=== PATIENT | male | born 1935 | race Caucasian/White ===

== ENCOUNTER 2016-10-05 14:12 | Outpatient (CLI) | payer MEDICARE | END 2016-10-05 14:13 | disposition home or self-care (01) | DX: I48.91 Unspecified atrial fibrillation (principal) ==

== ENCOUNTER 2016-10-08 15:07 | Outpatient (CLI) | payer MEDICARE | END 2016-10-08 15:08 | disposition home or self-care (01) | DX: I48.91 Unspecified atrial fibrillation (principal) ==

== ENCOUNTER 2016-10-22 08:39 | Outpatient (CLI) | payer MEDICARE | END 2016-10-22 08:40 | disposition home or self-care (01) | DX: I48.91 Unspecified atrial fibrillation (principal) ==

== ENCOUNTER 2016-11-10 10:42 | Outpatient (CLI) | payer MEDICARE | END 2016-11-10 10:43 | disposition home or self-care (01) | DX: I48.91 Unspecified atrial fibrillation (principal) ==

== ENCOUNTER 2016-12-10 14:12 | Outpatient (CLI) | payer MEDICARE | END 2016-12-10 14:13 | disposition home or self-care (01) | DX: G43.909 Migraine, unspecified, not intractable, without status migrainosus (principal); I48.91 Unspecified atrial fibrillation; E11.9 Type 2 diabetes mellitus without complications; I10 Essential (primary) hypertension; E78.5 Hyperlipidemia, unspecified ==

== ENCOUNTER 2017-01-14 14:14 | Outpatient (CLI) | payer MEDICARE | END 2017-01-14 14:15 | disposition home or self-care (01) | DX: I48.91 Unspecified atrial fibrillation (principal) ==

== ENCOUNTER 2017-02-21 12:49 | Outpatient (CLI) | payer MEDICARE ==
--- NOTE | 2017-02-21 14:58 | Ultrasound Report ---
LEFT BREAST ULTRASOUND: 02/21/2017 CLINICAL INDICATION: Palpable abnormality left retroareolar breast. TECHNIQUE: Real-time scanning was performed with customer engagement representative static images obtained. FINDINGS: Ultrasound of the palpable region identified by the patient was performed. There is unrem arkable gynecomastia in the left retroareolar breast. No sonographically suspicious findings are yoselin ntified. IMPRESSION: BENIGN FINDINGS. RECOMMENDATION: Continued clinical management. BIRADS CATEGORY 2 - BENIGN FINDINGS. JOB #: [id number] EXT JOB #:
--- NOTE | 2017-02-21 15:26 | Mammography Report ---
DIGITAL DIAGNOSTIC BILATERAL MAMMOGRAM: 02/21/2017 CLINICAL INDICATION: Palpable abnormality left retroareolar breast. TECHNIQUE: Bilateral CC and MLO views. FINDINGS: There is asymmetric gynecomastia in the left retroareolar breast. No suspicious mass, clu stered microcalcifications, or regions of architectural distortion are identified. Please also refer to left breast ultrasound of the same day. IMPRESSION: BENIGN FINDINGS, WITH ASYMMETRIC GYNECOMASTIA. RECOMMENDATION: Continued clinical management. BIRADS CATEGORY 2 - BENIGN FINDINGS. STANDARD QUALIFYING STATEMENTS 1. This examination was reviewed with the aid of Computer-Aided Detection (CAD). 2. A negative or benign imaging report should not delay biopsy if clinically suspicious findings are present. Consider surgical consultation if warranted. More than 5% of cancers are not identified by i maging. 3. Dense breasts may obscure an underlying neoplasm. JOB #: [id number] EXT JOB #:[id number]
== END 2017-02-21 12:50 | disposition home or self-care (01) ==
LOC: DI 12:49
PROVIDERS: ATTEND Internal Medicine
DX: N62 Hypertrophy of breast (principal)
CPT/HCPCS: 76642; G0204; 77066

== ENCOUNTER 2017-03-01 15:20 | Outpatient (CLI) | payer MEDICARE | END 2017-03-01 15:21 | disposition home or self-care (01) | LOC: LAB.F 15:20 | PROVIDERS: ATTEND Family Medicine | DX: I48.91 Unspecified atrial fibrillation (principal) | CPT/HCPCS: 85610 ==

== ENCOUNTER 2017-04-06 13:23 | Outpatient (CLI) | payer MEDICARE | END 2017-04-06 13:24 | disposition home or self-care (01) | LOC: LAB.F 13:23 | PROVIDERS: ATTEND Internal Medicine | DX: I48.91 Unspecified atrial fibrillation (principal) | CPT/HCPCS: 85610 ==

== ENCOUNTER 2017-04-21 13:31 | Outpatient (CLI) | payer MEDICARE | END 2017-04-21 13:32 | disposition home or self-care (01) | LOC: LAB.F 13:31 | PROVIDERS: ATTEND Internal Medicine | DX: I48.91 Unspecified atrial fibrillation (principal) | CPT/HCPCS: 85610 ==

== ENCOUNTER 2017-05-11 10:52 | Outpatient (CLI) | payer MEDICARE | END 2017-05-11 10:53 | disposition home or self-care (01) | LOC: LAB.F 10:52 | PROVIDERS: ATTEND Internal Medicine | DX: I48.91 Unspecified atrial fibrillation (principal) | CPT/HCPCS: 85610 ==

== ENCOUNTER 2017-06-24 14:27 | Outpatient (CLI) | payer MEDICARE | END 2017-06-24 14:28 | disposition home or self-care (01) | LOC: LAB.F 14:27 | PROVIDERS: ATTEND Internal Medicine | DX: I48.91 Unspecified atrial fibrillation (principal) | CPT/HCPCS: 85610 ==

== ENCOUNTER 2017-06-29 07:44 | Outpatient (CLI) | payer MEDICARE ==
[2017-06-29 13:30] LABS: BASOPHILS % (AUTO) 0.6 %; EOSINOPHILS # (AUTO) 0.2 10^3/uL (0.0-0.7); EOSINOPHILS % (AUTO) 4.1 %; HCT - HEMATOCRIT 40.6 % (42.0-52.0); HGB - HEMOGLOBIN 13.8 g/dL (14.0-18.0); LYMPHOCYTES # (AUTO) 1.1 10^3/uL (1.5-3.5); LYMPHOCYTES % (AUTO) 19.9 %; MEAN CORPUSCULAR HEMOGLOBIN 31.2 pg (27.0-31.0); MEAN CORPUSCULAR VOLUME 91.7 fL (80.0-94.0); MEAN PLATELET VOLUME 9.4 fL (7.4-11.4); MONOCYTES # (AUTO) 0.6 10^3/uL (0.0-1.0); MONOCYTES % (AUTO) 10.1 %; NEUTROPHILS # (AUTO) 3.7 10^3/uL (1.5-6.6); NEUTROPHILS % (AUTO) 65.3 %; RED BLOOD COUNT 4.42 10^6/uL (4.70-6.10); RED CELL DISTRIBUTION WIDTH 12.9 % (12.0-15.0); UNCORRECTED WHITE BLOOD COUNT 5.6 x10^3/uL; WHITE BLOOD COUNT 5.6 x10^3/uL (4.8-10.8)
[2017-06-29 14:03] LABS: ALBUMIN/GLOBULIN RATIO 1.5 (1.0-2.2); BILIRUBIN,TOTAL 0.8 mg/dL (0.2-1.0); BUN - BLOOD UREA NITROGEN 19 mg/dL (6-20); CALCIUM 8.9 mg/dL (8.5-10.3); CARBON DIOXIDE - CO2 27 mmol/L (21-32); CHLORIDE 104 mmol/L (101-111); CHOL/HDL RATIO 4.3 (<5.0); CHOLESTEROL 132 mg/dL; GFR - MDRD 72 (>89); GLUCOSE 122 mg/dL (70-100); HDL CHOLESTEROL 31 mg/dL; LDL/HDL RATIO 2.5 (<3.6); SODIUM 137 mmol/L (135-145); TOTAL PROTEIN 6.9 g/dL (6.7-8.2); TRIGLYCERIDES 124 mg/dL; VLDL CHOLESTEROL 25 mg/dL
[2017-06-29 14:32] LABS: HEMOGLOBIN A1C 0.66 g/dL
== END 2017-06-29 07:45 | disposition home or self-care (01) ==
LOC: LAB.F 07:44
PROVIDERS: ATTEND Internal Medicine
DX: I48.91 Unspecified atrial fibrillation (principal); E11.9 Type 2 diabetes mellitus without complications; I10 Essential (primary) hypertension; E78.5 Hyperlipidemia, unspecified; E78.00 Pure hypercholesterolemia, unspecified; Z12.5 Encounter for screening for malignant neoplasm of prostate
CPT/HCPCS: 36415; 80053; 80061; 83036; 85025; 85610; G0103; 84153

== ENCOUNTER 2017-08-03 13:25 | Outpatient (CLI) | payer MEDICARE | END 2017-08-03 13:26 | disposition home or self-care (01) | LOC: LAB.F 13:25 | PROVIDERS: ATTEND Physician Assistant Medical | DX: Z79.01 Long term (current) use of anticoagulants (principal) | CPT/HCPCS: 85610 ==

== ENCOUNTER 2017-08-29 08:00 | Outpatient (CLI) | payer MEDICARE | END 2017-08-29 08:01 | disposition home or self-care (01) | LOC: LAB.F 08:00 | PROVIDERS: ATTEND Physician Assistant Medical | DX: Z79.01 Long term (current) use of anticoagulants (principal) | CPT/HCPCS: 85610 ==

== ENCOUNTER 2017-09-28 07:29 | Outpatient (CLI) | payer MEDICARE | END 2017-09-28 07:30 | disposition home or self-care (01) | LOC: LAB.F 07:29 | PROVIDERS: ATTEND Physician Assistant Medical | DX: Z79.01 Long term (current) use of anticoagulants (principal) | CPT/HCPCS: 85610 ==

== ENCOUNTER 2017-11-03 09:07 | Outpatient (CLI) | payer MEDICARE | END 2017-11-03 09:08 | disposition home or self-care (01) | LOC: LAB.F 09:07 | PROVIDERS: ATTEND Physician Assistant Medical | DX: Z79.01 Long term (current) use of anticoagulants (principal) | CPT/HCPCS: 85610 ==

== ENCOUNTER 2017-11-24 05:40 | Emergency (ER) | payer MEDICARE ==
[2017-11-24 06:08] LABS: BASOPHILS % (AUTO) 0.5 %; EOSINOPHILS # (AUTO) 0.2 10^3/uL (0.0-0.7); EOSINOPHILS % (AUTO) 2.4 %; HGB - HEMOGLOBIN 12.4 g/dL (14.0-18.0); LYMPHOCYTES % (AUTO) 14.2 %; MEAN CORPUSCULAR HEMOGLOBIN 30.4 pg (27.0-31.0); MEAN CORPUSCULAR HGB CONC 32.9 g/dL (32.0-36.0); MEAN CORPUSCULAR VOLUME 92.4 fL (80.0-94.0); MEAN PLATELET VOLUME 8.4 fL (7.4-11.4); MONOCYTES # (AUTO) 0.7 10^3/uL (0.0-1.0); MONOCYTES % (AUTO) 9.8 %; NEUTROPHILS % (AUTO) 73.1 %; PLT - PLATELET COUNT 163 10^3/uL (130-450); RED BLOOD COUNT 4.07 10^6/uL (4.70-6.10); WHITE BLOOD COUNT 6.9 x10^3/uL (4.8-10.8)
[2017-11-24 06:19] LABS: INR 3.2 (0.8-1.2); PT - PROTHROMBIN TIME 34.8 secs (9.9-12.6)
[2017-11-24 06:24] LABS: ALBUMIN 3.9 g/dL (3.2-5.5); ALBUMIN/GLOBULIN RATIO 1.3 (1.0-2.2); BILIRUBIN,TOTAL 0.5 mg/dL (0.2-1.0); CALCIUM 9.2 mg/dL (8.5-10.3); CREATININE 0.9 mg/dL (0.6-1.2); MAGNESIUM 1.9 mg/dL (1.7-2.8)
[2017-11-24] MEDS ORDERED: IOPAMIDOL-300 100 ML VIAL ONE (06:35)
[2017-11-24] MEDS ORDERED: IOPAMIDOL-300 100 ML VIAL IVP ONE (06:39)
[2017-11-24] MEDS ORDERED: NITROGLYCERIN SL 0.4 MG TABLET SL STA (06:42)
--- NOTE | 2017-11-24 06:45 | ED Physician Documentation ---
PD HPI CHEST PAIN - Stated complaint Stated Complaint: CHEST PX/SPITTING BLOOD - Chief complaint Chief Complaint: Cardiac - History obtained from History obtained from: Patient, Family - History of Present Illness Timing - onset: Today Timing - onset during: Rest Timing - details: Abrupt onset, Still present Quality: Pressure, Aching Location: Left chest Associated symptoms: Palpitations, Cough, Other (hemoptysis). No: Shortness of air, Diaphoresis Similar symptoms before: Work up / diagnostics Recently seen: Clinic - Additional information Additional information: Patient is an 82 year old male with a history of a fib who is presenting to the emergency department for chest pain and hemoptysis. According to patient and family the pain woke him up from sleep. It is aching in nature. patient states that he went to his doctor two weeks ago and said his heart was fine, but only auscultated the heart. patient reports that he has not had a stress test or echo in about 4 years. patient states that he has been coughing up blood, approximately 5-6 tablespoons. Review of Systems Constitutional: denies: Fever, Chills Eyes: reports: Reviewed and negative Ears: reports: Reviewed and negative Nose: denies: Epistaxis Throat: reports: Reviewed and negative Cardiac: reports: Chest pain / pressure. denies: Palpitations Respiratory: reports: Cough, Hemoptysis GI: reports: Reviewed and negative : reports: Reviewed and negative Skin: denies: Rash, Lesions Musculoskeletal: denies: Neck pain, Back pain Neurologic: denies: Generalized weakness, Focal weakness, Numbness Psychiatric: reports: Reviewed and negative Endocrine: reports: Reviewed and negative PD PAST MEDICAL HISTORY - Past Medical History Cardiovascular: Hypertension, High cholesterol, Atrial fibrillation Respiratory: None Endocrine/Autoimmune: None GI: GERD : None HEENT: None Psych: None Musculoskeletal: None Derm: None - Past Surgical History General: Colonoscopy, Other Ortho: Hip replacement Cardiovascular: Other Derm: Other - Present Medications Home Medications: Ambulatory Orders Medication Instructions Recorded Confirmed Alfuzosin HCl [Alfuzosin HCl ER] 10 mg PO DAILY 02/17/15 09/29/15 Calcium Citrate/Vitamin D3 600 mg PO BID 02/17/15 09/29/15 [Calcitrate + Vit D Caplet] Cyanocobalamin (Vitamin B-12) 1,000 mg PO DAILY 02/17/15 09/29/15 [B-12] Digoxin 125 mcg PO DAILY 02/17/15 09/29/15 Diltiazem HCl [Diltiazem 24Hr ER] 360 mg PO DAILY 02/17/15 09/29/15 Finasteride 5 mg PO DAILY 02/17/15 09/29/15 Omeprazole 20 mg PO BID 02/17/15 09/29/15 Pravastatin Sodium 40 mg PO DAILY 02/17/15 09/29/15 Warfarin [Coumadin] 2.5 mg PO DAILY 02/17/15 09/29/15 Sucralfate 1 tab ORAL DAILY 04/18/15 09/29/15 - Allergies Allergies/Adverse Reactions: Allergies Allergy/AdvReac Type Severity Reaction Status Date / Time adhesive tape Allergy Rash Verified 09/29/15 07:02 latex AdvReac Itching Verified 09/29/15 07:03 tetracycline AdvReac Headache Verified 04/21/15 11:53 - Social History Does the pt smoke?: No Smoking Status: Never smoker Does the pt drink ETOH?: Yes Does the pt have substance abuse?: No - Immunizations Immunizations are current?: Yes PD ED PE NORMAL - Vitals Vital signs reviewed: Yes - General General: Alert and oriented X 3, No acute distress - HEENT HEENT: Atraumatic, PERRL - Neck Neck: Supple, no meningeal sign, No JVD - Respiratory Respiratory: No respiratory distress - Abdomen Abdomen: Soft, Non tender, Non distended - Derm Derm: Normal color, Warm and dry, No rash - Extremities Extremities: No deformity, No edema, No calf tenderness / cord - Neuro Neuro: Alert and oriented X 3, No motor deficit, No sensory deficit, Normal speech Eye Opening: Spontaneous Motor: Obeys Commands Verbal: Oriented GCS Score: 15 - Psych Psych: Normal mood PD ED PE EXPANDED - Neck Neck: Other (scar on left neck) - Cardiac Cardiac: Irregularly irregular Results - Vitals Vitals: Oxygen O2 Source Room air - EKG (time done) 0550 Rate: Rate (enter#) (117) Rhythm: Atrial fibrillation [place]: Normal Intervals: RBBB Compare to prior EKG: Old EKG unavailable - Labs Labs: Laboratory Tests 11/24/17 11/24/17 11/24/17 05:55 05:55 05:55 WBC 6.9 RBC 4.07 L Hgb 12.4 L Hct 37.6 L MCV 92.4 MCH 30.4 MCHC 32.9 RDW 13.0 Plt Count 163 MPV 8.4 Neut # 5.0 Lymph # 1.0 L [place] # 0.7 Eos # 0.2 Baso # 0.0 Absolute Nucleated RBC 0.00 Nucleated RBC % 0.0 PT 34.8 H INR 3.2 H APTT 44.2 H Sodium 137 Potassium 3.9 Chloride 104 Carbon Dioxide 26 Anion Gap 7.0 BUN 28 H Creatinine 0.9 Estimated GFR (MDRD) 81 L Glucose 129 H Calcium 9.2 Phosphorus 3.0 Magnesium 1.9 Total Bilirubin 0.5 AST 23 ALT 23 Alkaline Phosphatase 52 Troponin I B-Natriuretic Peptide Total Protein 7.0 Albumin 3.9 Globulin 3.1 Albumin/Globulin Ratio 1.3 Lipase 27 11/24/17 11/24/17 05:55 05:55 WBC RBC Hgb Hct MCV MCH MCHC RDW Plt Count MPV Neut # Lymph # [place] # Eos # Baso # Absolute Nucleated RBC Nucleated RBC % PT INR APTT Sodium Potassium Chloride Carbon Dioxide Anion Gap BUN Creatinine Estimated GFR (MDRD) Glucose Calcium Phosphorus Magnesium Total Bilirubin AST ALT Alkaline Phosphatase Troponin I < 0.04 B-Natriuretic Peptide 301 H Total Protein Albumin Globulin Albumin/Globulin Ratio Lipase - Rads (name of study) ct angio Radiology: Final report received (normal) PD MEDICAL DECISION MAKING - ED course Complexity details: reviewed old records, reviewed results, re-evaluated patient , considered differential, d/w patient ED course: Patient was seen and examined at bedside. ekg was performed and showed a fib. patient was placed on a monitor. IV access was gained and labs were drawn. CT PE was ordered. Patient was treated with nitro. When patient returned the results were reviewed and were within normal limits. there was no PE, and no signs of acute cardiac abnormality. Patient's symptoms have been going on for a few weeks and unlikely an acute AR, but were more likely secondary to bronchitis and an elevated INR. patient was told to hold his coumadin. Patient and family stated that they would call their doctor today and schedule close cardiac follow up. Patient was stable for discharge with outpatient follow up. Departure - Departure Disposition: 01 Home, Self Care Clinical Impression: Chest pain Condition: Good Instructions: ED Hemoptysis Follow-Up: primary,care provider [Other] - Tomorrow Comments: Your diagnostics today were within normal limits. there is no blood clots at this time. You should refrain from taking your coumadin today. you should follow up with your doctor today to schedule a follow up stress test and echocardiogram. Discharge Date/Time: 11/24/17 07:25
[2017-11-24 06:55] VITALS: BP 126/80
--- NOTE | 2017-11-24 07:01 | CT Report ---
EXAM: CT ANGIOGRAM CHEST EXAM DATE: 11/24/2017 06:42 AM. CLINICAL HISTORY: Chest pain, hemoptysis. COMPARISON: None. TECHNIQUE: Routine helical imaging was performed through the chest in the pulmonary arterial phase. I V Contrast: Nonionic. Reconstructions: Coronal 3-D MIP reconstructions.Sagittal and coronal. In accordance with CT protocol optimization, one or more of the following dose reduction techniques w ere utilized for this exam: automated exposure control, adjustment of mA and/or KV based on patient s ize, or use of iterative reconstructive technique. FINDINGS: Pulmonary Arteries: Diagnostic quality: Adequate through the segmental arteries. No evidence for acute or chronic pulmona ry emboli. No evidence of right heart strain. Lungs/Pleura: Interstitial disease of uncertain chronicity. There may be some interstitial fibrosis. Slight pulmonary edema is also possible. No davy alveolar consolidation. Trace pleural effusions. No pneumothorax. Mediastinum: Moderate cardiomegaly. Coronary artery calcifications. Normal sized mediastinal lymph no melissa. Possible esophageal mass is seen at the level of the brne. Thoracic Aorta: Moderate atherosclerosis. No aneurysm or dissection. Upper Abdomen: Unremarkable. Other: None. IMPRESSION: 1. No pulmonary emboli seen. 2. Moderate cardiomegaly with coronary artery calcifications. 3. Interstitial disease of uncertain chronicity. Possible interstitial fibrosis. Mild pulmonary edema not entirely excluded. 4. Trace pleural effusions. 5. Possible esophageal mass at the level of the bren. Consider endoscopy for further evaluation. [facility] Referring Provider Line: [phone] SITE ID: [id number]
--- NOTE | 2017-11-24 07:01 | CT Preliminary Report ---
Exam: CT CHEST ANGIO (PE) IMPRESSION: 1. No pulmonary emboli seen. 2. Moderate cardiomegaly with coronary artery calcifications. 3. Interstitial disease of uncertain chronicity. Possible interstitial fibrosis. Mild pulmonary edema not entirely excluded. 4. Trace pleural effusions. 5. Possible esophageal mass at the level of the bren. Consider endoscopy for further evaluation. [facility] SITE ID: [id number]
== END 2017-11-24 07:25 | disposition home or self-care (01) ==
LOC: ED 05:40
DX: R07.9 Chest pain, unspecified (principal); J40 Bronchitis, not specified as acute or chronic; D68.9 Coagulation defect, unspecified; R04.2 Hemoptysis; I48.91 Unspecified atrial fibrillation; Z79.01 Long term (current) use of anticoagulants; I10 Essential (primary) hypertension; K21.9 Gastro-esophageal reflux disease without esophagitis
CPT/HCPCS: 36415; 71275; 80053; 83690; 83735; 83880; 84100; 84484; 85025; 85610; 85730; 93005; 99283; 99284; Q9967

== ENCOUNTER 2017-12-07 14:04 | Outpatient (CLI) | payer MEDICARE | END 2017-12-07 14:05 | disposition home or self-care (01) | LOC: LAB.F 14:04 | PROVIDERS: ATTEND Physician Assistant Medical | DX: Z79.01 Long term (current) use of anticoagulants (principal) | CPT/HCPCS: 85610 ==

== ENCOUNTER 2017-12-14 09:33 | Outpatient (CLI) | payer MEDICARE ==
[2017-12-14] MEDS ORDERED: BARIUM SULFATE 135 ML BOTTLE PO ONE (10:19)
[2017-12-14] MEDS ORDERED: BARIUM SULFATE 176 GM BOTTLE PO ONE (10:19)
--- NOTE | 2017-12-14 10:42 | XRAY Report ---
ESOPHAGRAM: 12/14/2017 CLINICAL INDICATION: History of ulcers, difficulty swallowing, possible mass. FINDINGS: Esophagram was performed in the upright and prone positions. The hypopharynx appears unremarkable. The proximal half of the esophagus appears unremarkable. Just below the level of the bren, there is an intraluminal filling defect, which extends approximately 3 cm craniocaudal, and causes significant mass effect upon the lumen of the esophagus. It appears to arise from the left anterolateral wall. The appearance is highly suspicious for esophageal malignancy. No definite ulceration is identified. A small sliding hiatal hernia is present, producing gastroesophageal reflux. Given the size of the intraluminal component of the lesion, a barium pill was not administered. IMPRESSION: INTRALUMINAL MASS IN THE MID ESOPHAGUS, LIKELY ARISING FROM THE LEFT ANTEROLATERAL WALL, WITH SIGNIFICANT MASS EFFECT UPON THE LUMEN. THE APPEARANCE IS SUSPICIOUS FOR MALIGNANCY. GIVEN THE DEGREE OF MASS EFFECT UPON THE ESOPHAGEAL LUMEN, THE BARIUM PILL WAS NOT ADMINISTERED. Report called to Dr. Wong 12/14/2017 at 10:15 a.m. Fluoroscopy time: 2 minutes 1 second: 22 spot images. TD: 12/14/2017 10:42
== END 2017-12-14 09:34 | disposition home or self-care (01) ==
LOC: DI 09:33
PROVIDERS: ATTEND Surgery
DX: K22.8 Other specified diseases of esophagus (principal)
CPT/HCPCS: 74220; A9270

== ENCOUNTER 2017-12-19 09:19 | Day surgery (SDC) | payer MEDICARE ==
[2017-12-19] MEDS ORDERED: LACTATED RINGERS 1,000 ML IV ONE (09:28)
[2017-12-19] MEDS ORDERED: LIDO GARGLE 30 ML BOTTLE ONE (10:59)
[2017-12-19] MEDS ORDERED: MIDAZOLAM 2 MG/2 ML VIAL IVP ONE (11:02)
[2017-12-19] MEDS ORDERED: fentaNYL 100 MCG/2 ML VIAL IVP ONE (11:02)
[2017-12-19] MEDS ORDERED: BENZOCAINE/TETRACAINE/BUTAMBEN SPRAY 56 GM TOP ONE (11:11)
[2017-12-19] MEDS ORDERED: LIDO GARGLE 30 ML BOTTLE PO ONE (11:12)
[2017-12-19 12:35] VITALS: BP 122/61
== END 2017-12-19 09:20 | disposition home or self-care (01) ==
LOC: SDS 09:19
PROVIDERS: ATTEND Surgery
PROC: 0DB28ZX Excision of Middle Esophagus, Via Natural or Artificial Opening Endoscopic, Diagnostic (ICD-10-PCS; principal; 2017-12-19 10:30)
DX: C15.4 Malignant neoplasm of middle third of esophagus (principal); K92.0 Hematemesis; I48.91 Unspecified atrial fibrillation; Z79.01 Long term (current) use of anticoagulants; I10 Essential (primary) hypertension; E78.5 Hyperlipidemia, unspecified; K21.9 Gastro-esophageal reflux disease without esophagitis
CPT/HCPCS: 43251; 93005; A9270; J7120